=== PATIENT | female | born 1955 | race Caucasian/White ===

== ENCOUNTER → 2017-04-18 | Outpatient (CLI) | payer OTHER ==
[~2017-04-18] MED LIST: GADOBUTROL 7.5 MMOL/7.5 ML (GADAVIST) VIAL IV ONE; SPIR100T2 PO; THYR90TA PO; TRAM-42 PO
--- NOTE | 2017-04-18 12:24 | Diagnostic Imaging Report ---
PROCEDURE: MRI lumbar spine with and without contrast. TECHNIQUE: Multiplanar, multisequence MRI of the lumbar spine was performed with and without contrast. INDICATION: Back pain and left leg pain and numbness. 7 mL of Gadovist is administered intravenously. FINDINGS: There is satisfactory alignment of the lumbar spine. The vertebral body heights are preserved. Disc heights are also preserved. There is, however, mild disc desiccation at the lower lumbar spine levels. There is minimal bone marrow edema seen in the left pedicle at L4 and L5 levels which is likely related to the adjacent facet arthropathy. No significant marrow signal abnormality is seen otherwise. No enhancing marrow lesion is seen. The cauda equina and conus medullaris appear grossly unremarkable. No enhancing lesion along the nerve roots or the conus is seen. T12/L1: No disc herniation. No spinal canal or foraminal stenosis. L1/L2: No disc herniation. No spinal canal or foraminal stenosis. L2/L3: No disc herniation. There is mild facet hypertrophy. No central canal or lateral recess stenosis. No foraminal narrowing. L3/L4: There is mild diffuse disc bulge and mild to moderate facet hypertrophy. No central canal or lateral recess stenosis. No foraminal narrowing. L4/L5: There is a diffuse disc bulge and moderate to severe facet arthropathy and ligamentum flavum thickening. This results in moderate central canal stenosis reducing the AP dimension of the canal to 7.9 mm and lateral recess stenosis moderate to severe on the left encroaching upon the descending left L5 nerve root. There is moderate right lateral recess stenosis. The foramina demonstrate no significant stenosis. L5/S1: There is a diffuse disc bulge and moderate to severe facet hypertrophy. There is moderate central canal stenosis reducing the AP dimension of the canal to 7.1 mm and bilateral lateral recess stenosis, severe on the left and moderate on the right side. The left lateral recess stenosis encroaches upon the descending left S1 nerve root. The foramina demonstrate no significant stenosis. IMPRESSION: Lower lumbar spine facet and disc degenerative changes with moderate to severe stenosis of the left lateral recess at L4/L5 and at L5/S1 encroaching upon the descending left L5 and left S1 nerve roots. Other findings as above. Dictated by: Dictated on workstation # [id number]
== END ==
LOC: RAD 08:58
DX: M51.36 Other intervertebral disc degeneration, lumbar region (principal); M54.16 Radiculopathy, lumbar region
CPT/HCPCS: 72158

== ENCOUNTER → 2017-05-20 | Outpatient (CLI) | payer OTHER ==
[~2017-05-20] MED LIST changes: -GADOBUTROL 7.5 MMOL/7.5 ML (GADAVIST) VIAL IV ONE
--- NOTE | 2017-05-20 15:45 | Diagnostic Imaging Report ---
Whole body bone scan. TECHNIQUE: After the intravenous administration of 25.4 mCi of Technetium 99m MDP, whole body delayed phase bone scan images were obtained with lateral views of the head and neck and the chest regions. INDICATION: Left hip and back pain. FINDINGS: There is a normal distribution of the radiotracer within the osseous structures with mild areas of increased uptake along the sternoclavicular joints, the shoulder joints, SI joints, and the knees and ankles suggestive of degenerative changes. No significant increased radiotracer uptake along the hip joints. There is renal and urinary bladder activity seen from tracer excretion. IMPRESSION: Nonspecific mild degenerative changes in upper and lower extremity joints suggested. Dictated by: Dictated on workstation # [id number]
== END ==
LOC: CARD 11:12
DX: E03.9 Hypothyroidism, unspecified (principal); E16.2 Hypoglycemia, unspecified; E89.41 Symptomatic postprocedural ovarian failure; R10.9 Unspecified abdominal pain; M54.9 Dorsalgia, unspecified; R93.8 Abnormal findings on diagnostic imaging of other specified body structures
CPT/HCPCS: 78306

== ENCOUNTER → 2018-12-04 | Outpatient (CLI) | payer OTHER ==
[~2018-12-04] MED LIST changes: -SPIR100T2 PO; +SPIR100T4 PO
--- NOTE | 2018-12-04 08:40 | Diagnostic Imaging Report ---
PROCEDURE: US Thyroid. TECHNIQUE: Multiple real-time grayscale images were obtained of the thyroid in various projections. INDICATION: Hypothyroidism. FINDINGS: Right lobe of thyroid measures 3.4 x 1.4 x 1.2 cm and left lobe measures 3.5 x 1.3 x 1.1 cm. The isthmus is 2 mm in thickness. Both lobes of the thyroid demonstrate fairly homogeneous echotexture. No discrete thyroid mass is detected. IMPRESSION: Unremarkable thyroid ultrasound. Dictated by: Dictated on workstation # [id number]
== END ==
LOC: RAD 07:52
PROVIDERS: ATTEND Nurse Practitioner Family
DX: E03.8 Other specified hypothyroidism (principal)
CPT/HCPCS: 76536

== ENCOUNTER → 2020-02-15 | Outpatient (CLI) | payer OTHER ==
--- NOTE | 2020-02-15 09:43 | Diagnostic Imaging Report ---
HISTORY: Arthritis for 10 years. Ganglion cyst of the left wrist for 2 weeks. Pain in both hands. COMPARISON: None TECHNIQUE: 3 views of the bilateral hands. FINDINGS: Right hand: No acute fracture or dislocation is seen in the right hand. Alignment appears normal. There are moderate degenerative changes in the 2nd through 5th distal interphalangeal joints, and the interphalangeal joint of the thumb. There are severe degenerative changes of the basal joints of the thumb. No cortical erosions are seen. Left hand: There are moderate degenerative changes in the 2nd through 5th distal interphalangeal joints. Marked degenerative changes are seen at the basal joints of the thumb and the interphalangeal joint. No acute fracture is seen. Alignment appears normal. No radiopaque foreign body is seen. There is mild prominence at the radial aspect of the distal left radius metaphysis, which may be from remote trauma or simply represent the physeal scar. No soft tissue masses are seen radiographically. IMPRESSION: 1. Degenerative changes in the hands bilaterally, most severe in the basal joints of the thumbs. Dictated by: Dictated on workstation # [id number]
== END ==
LOC: RAD 08:52
PROVIDERS: ATTEND Nurse Practitioner Family
DX: M19.041 Primary osteoarthritis, right hand (principal); M19.042 Primary osteoarthritis, left hand; M67.432 Ganglion, left wrist

== ENCOUNTER → 2020-02-18 | Outpatient (CLI) | payer OTHER ==
--- NOTE | 2020-02-18 17:53 | Diagnostic Imaging Report ---
INDICATION: Routine screening. COMPARISON: No prior mammogram is available for comparison. EXAMINATION: 2D and 3D bilateral screening mammography was performed with CAD. FINDINGS: Scattered fibroglandular densities are identified, bilaterally. No mass or malignant appearing microcalcification is seen. Axillae are unremarkable. IMPRESSION: No mammographic feature suspicious for malignancy is identified. ACR BI-RADS Category 1: Negative. Result letter will be mailed to the patient. Note: At least 10% of breast cancer is not imaged by mammography. Dictated by: Dictated on workstation # [id number]
== END ==
LOC: RAD 08:57
PROVIDERS: ATTEND Nurse Practitioner Family
DX: Z12.31 Encounter for screening mammogram for malignant neoplasm of breast (principal)
CPT/HCPCS: 77063; 77067